=== PATIENT | female | born 1935 | race African-American/Black ===

== ENCOUNTER 2020-09-22 21:41 | Observation (INO) | payer MEDICARE ==
[2020-09-22 22:27] LABS: #Eosinphils 0.3 thou/uL (0.0-0.7); #Lymphocytes 1.5 thou/uL (1.20-3.40); #Monocytes 0.5 thou/uL (0.11-0.59); #Neutrophils 6.3 thou/uL (1.40-6.50); %Basophils 0.2 % (0.0-1.0); %Eosinophils 3.4 % (0.0-10.0); %Lymphocytes 17.9 % (21.0-51.0); %Monocytes 5.5 % (0.0-10.0); Hemoglobin 12.1 g/dL (12.0-16.0); Mean Corpuscular HGB CONC 32.5 g/dL (32.0-36.0); Mean Corpuscular Hemoglobin 29.8 pg (27.0-31.0); Mean Corpuscular Volume 91.7 fL (78.0-98.0); Mean Platelet Volume 7.7 fL (7.4-10.4); Platelet Count 183 thou/uL (130-400); RBC Distribution Width 13.6 % (11.5-14.5); Red Blood Cell (RBC) Count 4.07 mill/uL (4.20-5.40); White Blood Cell (WBC) Count 8.6 thou/uL (4.8-10.8)
[2020-09-22 23:42] LABS: ALT (SGPT) 13 U/L (8-55); AST (SGOT) 24 U/L (5-34); Albumin 3.4 g/dL (3.4-4.8); Alkaline Phosphatase 61 U/L (40-110); Anion Gap 14 mmol/L (10-20); BUN (Urea Nitrogen) 37 mg/dL (9.8-20.1); Bilirubin, Total 0.4 mg/dL (0.2-1.2); Calc. Creatinine Clearance 0 mL/min (70-130); Calcium 10.1 mg/dL (7.8-10.44); Carbon Dioxide 27 mmol/L (23-31); Chloride 99 mmol/L (98-107); Globulin 3.6 g/dL (2.4-3.5); Glucose 124 mg/dL (83-110); Lipase 34 U/L (8-78); Potassium 3.2 mmol/L (3.5-5.1); Sodium 137 mmol/L (136-145)
[2020-09-23] MEDS ORDERED: Acetaminophen 325 MG TAB PO PRN (01:29)
[2020-09-23] MEDS ORDERED: Dextrose 5% in Water 1,000 ML IV PRN (01:37)
[2020-09-23] MEDS ORDERED: Dextrose 50% Abboject 50 ML SYRINGE SLOW IVP PRN (01:37)
[2020-09-23] MEDS ORDERED: HumaLOG 300 UNITS/3 ML VIAL SC PRN (01:37)
[2020-09-23] MEDS ORDERED: Potassium Chloride 20 MEQ TAB PO SCH (01:45)
[2020-09-23 02:16] LABS: CKMB 3.2 ng/mL (0-6.6)
[2020-09-23 02:21] VITALS: BMI 36.1
[2020-09-23] MEDS: Nitroglycerin 2% Ointment 1 INCH/1 GM Packet TOP SCH ×3 (03:19→21:00)
[2020-09-23 04:14] LABS: #Eosinphils 0.1 thou/uL (0.0-0.7); #Lymphocytes 2.1 thou/uL (1.20-3.40); #Monocytes 0.7 thou/uL (0.11-0.59); #Neutrophils 6.5 thou/uL (1.40-6.50); %Basophils 0.2 % (0.0-1.0); %Lymphocytes 22.5 % (21.0-51.0); %Neutrophils 69.2 % (42.0-75.0); Hemoglobin 11.1 g/dL (12.0-16.0); Mean Corpuscular Hemoglobin 29.3 pg (27.0-31.0); Mean Corpuscular Volume 91.4 fL (78.0-98.0); Mean Platelet Volume 7.9 fL (7.4-10.4); Platelet Count 168 thou/uL (130-400); RBC Distribution Width 13.6 % (11.5-14.5); Red Blood Cell (RBC) Count 3.78 mill/uL (4.20-5.40); White Blood Cell (WBC) Count 9.4 thou/uL (4.8-10.8)
[2020-09-23 04:34] LABS: Anion Gap 12 mmol/L (10-20); BUN (Urea Nitrogen) 37 mg/dL (9.8-20.1); Calc. Creatinine Clearance 22 mL/min (70-130); Calcium 9.6 mg/dL (7.8-10.44); Carbon Dioxide 29 mmol/L (23-31); Chloride 101 mmol/L (98-107); Glucose 161 mg/dL (83-110); Magnesium 1.5 mg/dL (1.6-2.6); Potassium 3.3 mmol/L (3.5-5.1); Sodium 139 mmol/L (136-145)
[2020-09-23] MEDS ORDERED: Magnesium 2 GM/50 ML 2 GM in Premix Bag 1 BAG IVPB SCH (08:15)
[2020-09-23] MEDS ORDERED: Aspirin Chewable 81 MG TAB PO SCH (09:00)
[2020-09-23] MEDS ORDERED: Enoxaparin Sodium 30 MG/0.3 ML SYRINGE SC SCH (09:00)
[2020-09-23] MEDS ORDERED: Enoxaparin Sodium 100 MG/ML SYRINGE SC SCH ×2 (09:00)
[2020-09-23] MEDS ORDERED: Metolazone 5 MG TAB PO PRN (13:50)
[2020-09-23] MEDS ORDERED: Ondansetron PF 4 MG/2 ML Vial IVP PRN (17:02)
[2020-09-23] MEDS: Atorvastatin Calcium 40 MG TAB PO SCH (20:56)
[2020-09-23] MEDS: Carvedilol 25 MG TAB PO SCH (20:56)
[2020-09-23 23:53] LABS: SARS-CoV-2 PCR NAA for Saliva Not Detected (NotDetected)
[2020-09-24 05:39] LABS: Cardiac Risk 2.7 (Less than 4.5)
[2020-09-24] MEDS: Levothyroxine Sodium 112 MCG TAB PO SCH (06:19)
[2020-09-24] MEDS: Nitroglycerin 2% Ointment 1 INCH/1 GM Packet TOP SCH ×3 (06:19→21:40)
[2020-09-24] MEDS: Ergocalciferol 1.25 MG(50,000 UNITS) CAP PO SCH (09:00)
[2020-09-24] MEDS: Aspirin 81 mg Enteric Coated Tablet PO SCH (09:00)
[2020-09-24] MEDS: Amlodipine 10 MG TAB PO SCH (09:00)
[2020-09-24] MEDS ORDERED: Non-Formulary Item 1 EACH (Levothyroxine Sodium [Levothyroxine] 112 MCG Capsule) PO SCH (09:00)
[2020-09-24] MEDS ORDERED: ADENOSINE 60 MG/20 ML VIAL ONE (12:52)
[2020-09-24] MEDS: Furosemide 40 MG TAB PO SCH (14:08)
[2020-09-24] MEDS: Carvedilol 25 MG TAB PO SCH ×2 (14:08→21:40)
[2020-09-24] MEDS ORDERED: cloNIDine 0.3 MG TAB PO PRN (15:14)
[2020-09-24] MEDS ORDERED: cloNIDine 0.3 MG TAB PO SCH (21:00)
[2020-09-24] MEDS: Atorvastatin Calcium 40 MG TAB PO SCH (21:40)
[2020-09-24] MEDS: Senokot 8.6 MG TAB PO PRN (21:40)
[2020-09-25] MEDS: Levothyroxine Sodium 112 MCG TAB PO SCH (05:36)
[2020-09-25 08:27] VITALS: TEMP 98.6
[2020-09-25] MEDS: Furosemide 40 MG TAB PO SCH (09:58)
[2020-09-25] MEDS: Carvedilol 25 MG TAB PO SCH (09:58)
[2020-09-25] MEDS: Amlodipine 10 MG TAB PO SCH (09:58)
[2020-09-25] MEDS: Aspirin 81 mg Enteric Coated Tablet PO SCH (09:59)
[2020-09-25] MEDS: Ergocalciferol 1.25 MG(50,000 UNITS) CAP PO SCH (09:59)
[2020-09-25] MEDS: Senokot 8.6 MG TAB PO PRN (09:59)
[2020-09-25] MEDS: Nitroglycerin 2% Ointment 1 INCH/1 GM Packet TOP SCH (10:02)
[2020-09-25 12:46] VITALS: BP 134/61
== END 2020-09-25 14:30 | disposition home or self-care (01) ==
LOC: ERS 21:41 → 2SW 09-23 00:32
PROVIDERS: ADMIT Student in an Organized Health Care Education/Training Program; ATTEND Internal Medicine
DX: R07.89 Other chest pain (principal); I13.0 Hypertensive heart and chronic kidney disease with heart failure and stage 1 through stage 4 chronic kidney disease, or unspecified chronic kidney disease; E11.22 Type 2 diabetes mellitus with diabetic chronic kidney disease; N18.9 Chronic kidney disease, unspecified; I50.22 Chronic systolic (congestive) heart failure; M19.90 Unspecified osteoarthritis, unspecified site; I08.1 Rheumatic disorders of both mitral and tricuspid valves; I35.8 Other nonrheumatic aortic valve disorders; I49.8 Other specified cardiac arrhythmias; E66.01 Morbid (severe) obesity due to excess calories; Z68.36 Body mass index [BMI] 36.0-36.9, adult; Z79.4 Long term (current) use of insulin; Z79.82 Long term (current) use of aspirin; Z79.899 Other long term (current) drug therapy; Z88.0 Allergy status to penicillin; Z88.2 Allergy status to sulfonamides; Z95.0 Presence of cardiac pacemaker; Z20.822 Contact with and (suspected) exposure to COVID-19
CPT/HCPCS: 71045; 78452; 80048; 80053; 80061; 82553; 82962 ×3; 83690; 83735; 83880; 84484 ×3; 85025 ×2; 93005; 93017; 93306; 94760 ×2; A9500; U0003; U0005; 36415; 36416; 87635; 96372; 96374; 96375; G0378; J0153; J1650; J1815; J2405; J3475